=== PATIENT | female | born 1965 | race African-American/Black ===

== ENCOUNTER → 2018-08-28 | Day surgery (SDC) | payer MEDICARE, MEDICAID ==
[~2018-08-28] MED LIST: ALBU6.7H INH; CHOL100046 PO; CYAN10009 PO; FERR-63 PO; LIDOCAINE HCL 1% 20ML VIAL (Pyxis) INJ ONE; PAZEO; S350 PO; SODIUM BICARBONATE 4% (2.4MEQ) 5ML VIAL IV ONE
== END | disposition home or self-care (01) ==
LOC: US 08:57 → EDSTATUS 09:13 → US 09:13
PROVIDERS: ATTEND Internal Medicine Endocrinology, Diabetes & Metabolism
DX: E04.1 Nontoxic single thyroid nodule (principal)
CPT/HCPCS: 10005; 88172; 88173; J3490; 10022; 76942